=== PATIENT | female | born 1990 | race Caucasian/White ===

== ENCOUNTER 2016-12-04 17:05 | Emergency (ER) | payer SELFPAY ==
[~2016-12-04] VITALS: Ht 156.2 cm; Wt 86.0 kg
[~2016-12-04 17:05] MED LIST: PREN1TAB22 PO
[2016-12-04] MEDS ORDERED: DiphenhydrAMINE HCL 50 MG CAPSULE PO ONE (20:45)
[2016-12-04] MEDS ORDERED: PredniSONE 20 MG TABLET PO ONE (20:45)
[2016-12-04 20:53] LABS: BASOPHILS % (AUTO) 0.5 % (0.0-2.0); EOSINOPHILS % (AUTO) 1.2 % (1.0-6.0); HEMATOCRIT 31.7 % (36-46); HEMOGLOBIN 10.7 g/dL (12.0-16.0); LYMPHOCYTES # (AUTO) 2.1 K/uL (1.0-4.8); MEAN CORPUSCULAR HEMOGLOBIN 26.1 pg (26.0-34.0); MEAN CORPUSCULAR HGB CONC 33.6 G/dL (31.0-37.0); MEAN CORPUSCULAR VOLUME 78 fL (80-100); MONOCYTES # (AUTO) 0.5 K/uL (0.1-1.0); NEUTROPHILS # (AUTO) 9.7 K/uL (1.8-7.7); NEUTROPHILS % (AUTO) 77.3 % (40.0-70.0); PLATELET COUNT (AUTO) 309 K/uL (150-450); RED BLOOD CELL COUNT(AUTO) 4.08 MIL/uL (4.00-5.20); RED CELL DISTRIBUTION WIDTH 14.1 % (11.5-14.5); WHITE BLOOD COUNT (AUTO) 12.5 K/uL (4.5-11.0)
[2016-12-04 21:00] LABS: APPEARANCE,URINE CLOUDY (CLEAR); GLUCOSE, URINE (UA) NEGATIVE (NEGATIVE); KETONES,URINE NEGATIVE (NEGATIVE); LEUKOCYTE ESTERASE ,URINE LARGE (NEGATIVE); OCCULT BLOOD,URINE TRACE (NEGATIVE); PH,URINE 6.5 (5.0-8.0); PROTEIN,URINE NEGATIVE (NEGATIVE)
[2016-12-04 21:10] LABS: RBC MORPHOLOGY COMMENT ABNORMAL RBC MORPH
[2016-12-04 21:12] LABS: ADD UA MICROSCOPIC YES
[2016-12-04 21:13] LABS: ANION GAP 7 mmol/L (8-16); CALCIUM, TOTAL 8.5 mg/dL (8.8-10.5); CARBON DIOXIDE 28 mmol/L (22-29); CHLORIDE 103 mmol/L (98-107); GLOMERULAR FILTR. RATE CALC > 60 mL/min (>60); SODIUM SERUM 138 mmol/L (136-145); UREA NITROGEN, BLOOD 12 mg/dL (7-18)
[2016-12-04 21:19] LABS: SQUAMOUS EPITHELIAL CELL,UR Many /LPF (None Seen)
[2016-12-04 21:20] LABS: ALANINE AMINOTRANSFERASE 21 U/L (12-78); ALBUMIN 3.1 g/dL (3.4-5.0); ASPARTATE AMINOTRANSFERASE 16 U/L (15-37); BILIRUBIN,TOTAL 0.3 mg/dL (0.1-1.0); TOTAL PROTEIN, SERUM 7.5 g/dL (6.4-8.2)
[2016-12-04 21:20] LABS: WBC,URINE 26-50 /HPF (0-5)
[2016-12-04 21:22] LABS: RBC,URINE 0-2 /HPF (0-2)
[2016-12-04 21:24] LABS: B-TYPE NATRIURETIC PEPTIDE 6 pg/mL (0-100)
[2016-12-04 22:05] LABS: ERYTHROCYTE SEDIMENTATION RATE 20 MM/HR (0-20)
[2016-12-04 22:19] VITALS: BP 119/63
[2016-12-04] MEDS ORDERED: KETOROLAC TROMETHAMINE 60 MG/2 ML VIAL IM ONE (22:30)
== END 2016-12-04 22:40 | disposition home or self-care (01) ==
LOC: EMS 17:06
DX: L52 Erythema nodosum (principal); N39.0 Urinary tract infection, site not specified
CPT/HCPCS: 36415; 80053; 81001; 83880; 84703; 85025; 85651; 87086; 96372; 99284; J1885; J7512